=== PATIENT | female | born 2000 | race African-American/Black ===

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

== ENCOUNTER 2019-12-27 09:40 | Observation (INO) | payer MEDICAID ==
[~2019-12-27] VITALS: Ht 160 cm; Wt 104.3 kg
== END 2019-12-27 12:45 | disposition home or self-care (01) ==
LOC: 8 EST LDRP 09:40 → 8 EST A/PP 10:33
PROVIDERS: ADMIT Specialist; ATTEND Specialist
DX: O36.8120 Decreased fetal movements, second trimester, not applicable or unspecified (principal); Z3A.22 22 weeks gestation of pregnancy
CPT/HCPCS: 59025; 76805; G0378; 99281

== ENCOUNTER 2020-03-08 20:06 | Observation (INO) | payer MEDICAID, OTHER ==
[~2020-03-08] VITALS: Ht 162.6 cm; Wt 111.1 kg
[2020-03-08] MEDS ORDERED: MAGNESIUM/ALUMINUM HYDROXIDE/SIMETHICONE 30ML UDC PO NR (22:45)
== END 2020-03-08 23:45 | disposition home or self-care (01) ==
LOC: 8 EST LDRP 20:06
PROVIDERS: ADMIT Specialist; ATTEND Specialist
DX: O26.893 Other specified pregnancy related conditions, third trimester (principal); O99.891 Other specified diseases and conditions complicating pregnancy; R10.13 Epigastric pain; R10.2 Pelvic and perineal pain; R06.02 Shortness of breath; Z3A.33 33 weeks gestation of pregnancy
CPT/HCPCS: 59025; G0378; 99281

== ENCOUNTER 2020-04-15 17:28 | Observation (INO) | payer OTHER ==
[~2020-04-15] VITALS: Ht 162.6 cm; Wt 119.3 kg
== END 2020-04-15 19:00 | disposition home or self-care (01) ==
LOC: 8 EST LDRP 17:28
PROVIDERS: ADMIT Specialist; ATTEND Specialist
DX: O26.893 Other specified pregnancy related conditions, third trimester (principal); R20.0 Anesthesia of skin; Z3A.38 38 weeks gestation of pregnancy
CPT/HCPCS: 59025; G0378; 99281

== ENCOUNTER 2020-04-21 22:42 | Observation (INO) | payer OTHER ==
[~2020-04-21] VITALS: Ht 162.6 cm; Wt 119.3 kg
[2020-04-21] MEDS ORDERED: PNV1TABL50 PO (23:51)
== END 2020-04-22 00:35 | disposition home or self-care (01) ==
LOC: 8 EST LDRP 22:42
PROVIDERS: ADMIT Specialist; ATTEND Specialist
DX: O62.9 Abnormality of forces of labor, unspecified (principal); Z3A.39 39 weeks gestation of pregnancy
CPT/HCPCS: 59025; 76815; 76818; G0378; 99281